=== PATIENT | male | born 1975 | race American Indian/Alaskan Native ===

== ENCOUNTER 2019-10-19 18:25 | Emergency (ER) | payer SELFPAY ==
--- NOTE | 2019-10-19 18:47 | Emergency Department Report ---
Blank Doc - Documentation Documentation: 44-year-old male that presents with left knee pain, swelling, and warm to touch. HX of gout. Tachycardia in traiage. This initial assessment/diagnostic orders/clinical plan/treatment(s) is/are subject to change based on patient's health status, clinical progression and re-assessment by fellow clinical providers in the ED. Further treatment and workup at subsequent clinical providers discretion. Patient/guardians urged not to elope from the ED as their condition may be serious if not clinically assessed and managed. Initial orders include: 1- Patient sent to [facility] for further evaluation and treatment 2- exam to r/o septic joint 3- xrays
--- NOTE | 2019-10-19 19:49 | XRay Report ---
LEFT KNEE 3 VIEW(S) INDICATION / CLINICAL INFORMATION: knee pain and swelling COMPARISON: None available. FINDINGS: No acute fracture or subluxation. Medial femoral and tibial osteophytes are present, suggestive of un derlying osteoarthrosis. There is a large suprapatellar joint fluid collection. Ossific density fragm ents at the tibial tubercle probably reflect chronic [place]-Schlatter disease. Signer Name: Nehemias Weeks MD Signed: 10/19/2019 7:44 PM Workstation Name: [id number]
[2019-10-19] MEDS ORDERED: dexAMETHasone 20 MG/5 ML VIAL IM ONE (21:32)
[2019-10-19] MEDS ORDERED: KETOROLAC 60 MG/2 ML INJ IM ONE (21:32)
--- NOTE | 2019-10-19 21:39 | Emergency Department Report ---
ED Extremity Problem HPI - General Chief complaint: Extremity Problem,Nontraumatic Stated complaint: LFT KNEE SWELLING/PAIN Time Seen by Provider: 10/19/19 18:46 Source: patient Mode of arrival: Ambulatory Limitations: No Limitations - History of Present Illness Initial comments: Patient is a 44-year-old male presents the emergency room with complaints of a "gout flare" that began 2 to 3 days ago. He states that his flare is in his left knee. Patient states that he chronically has gout and gets it in different joints. He states he has had an arthrocentesis before and was diagnosed with gout at that time. He denies any fall or injury. He denies any numbness or weakness. He denies any fever, nausea, vomiting, diarrhea, any other symptoms. He does not have a primary care physician. He denies any allergies to medications. - Related Data Previous Rx's Medication Instructions Recorded Last Taken Type Acetaminophen/Codeine [Tylenol 1 tab PO Q6H PRN #12 tab 07/05/18 Unknown Rx /Codeine # 3 tab] Colchicine 0.6 mg PO DAILY #10 tablet 07/05/18 Unknown Rx Sulfamethoxazole/Trimethoprim 1 each PO BID #14 tablet 07/05/18 Unknown Rx [Bactrim DS TAB] allopurinoL [Allopurinol] 300 mg PO DAILY #10 tablet 07/05/18 Unknown Rx amLODIPine [Norvasc] 5 mg PO DAILY #30 tab 07/05/18 Unknown Rx Sulfamethoxazole/Trimethoprim 1 each PO BID #14 tablet 07/12/18 Unknown Rx [Bactrim DS TAB] Ibuprofen [Motrin 800 MG tab] 800 mg PO Q8HR PRN #14 tablet 01/21/19 Unknown Rx Acetaminophen/Codeine [Tylenol 1 tab PO Q6H PRN #10 tab 10/19/19 Unknown Rx /Codeine # 3 tab] Colchicine 0.6 mg PO BID 1 Days #3 capsule 10/19/19 Unknown Rx Indomethacin 50 mg PO Q8H 7 Days #21 capsule 10/19/19 Unknown Rx Prednisone [predniSONE 10 mg 10 mg PO .TAPER #1 tab.ds.pk 10/19/19 Unknown Rx (6-Day Pack, 21 Tabs)] Allergies Allergy/AdvReac Type Severity Reaction Status Date / Time No Known Allergies Allergy Verified 07/05/18 20:47 ED Review of Systems ROS: Stated complaint: LFT KNEE SWELLING/PAIN Other details as noted in HPI Comment: All other systems reviewed and negative ED Past Medical Hx - Past Medical History Previous Medical History?: Yes Additional medical history: gout, bursitis - Surgical History Past Surgical History?: Yes Additional Surgical History: Right hand/elbow - Social History Smoking Status: Unknown if ever smoked Substance Use Type: None - Medications Home Medications: Home Medications Medication Instructions Recorded Confirmed Last Taken Type Acetaminophen/Codeine [Tylenol 1 tab PO Q6H PRN #12 tab 07/05/18 Unknown Rx /Codeine # 3 tab] Colchicine 0.6 mg PO DAILY #10 tablet 07/05/18 Unknown Rx Sulfamethoxazole/Trimethoprim 1 each PO BID #14 tablet 07/05/18 Unknown Rx [Bactrim DS TAB] allopurinoL [Allopurinol] 300 mg PO DAILY #10 tablet 07/05/18 Unknown Rx amLODIPine [Norvasc] 5 mg PO DAILY #30 tab 07/05/18 Unknown Rx Sulfamethoxazole/Trimethoprim 1 each PO BID #14 tablet 07/12/18 Unknown Rx [Bactrim DS TAB] Ibuprofen [Motrin 800 MG tab] 800 mg PO Q8HR PRN #14 tablet 01/21/19 Unknown Rx Acetaminophen/Codeine [Tylenol 1 tab PO Q6H PRN #10 tab 10/19/19 Unknown Rx /Codeine # 3 tab] Colchicine 0.6 mg PO BID 1 Days #3 capsule 10/19/19 Unknown Rx Indomethacin 50 mg PO Q8H 7 Days #21 capsule 10/19/19 Unknown Rx Prednisone [predniSONE 10 mg 10 mg PO .TAPER #1 tab.ds.pk 10/19/19 Unknown Rx (6-Day Pack, 21 Tabs)] ED Physical Exam - General Limitations: No Limitations General appearance: alert, other (appears to be in mild amount of pain) - Head Head exam: Present: atraumatic, normocephalic - Eye Eye exam: Present: normal appearance - ENT ENT exam: Present: mucous membranes moist - Extremities Exam Extremities exam: Present: other (TTP to the left anterior knee, edema present to the left knee, mildly increased warmth, no erythema, slightly decreased ROM secondary to pain and edema, no skin changes, neurovascularly intact) - Neurological Exam Neurological exam: Present: alert, oriented X3 - Psychiatric Psychiatric exam: Present: normal affect, normal mood - Skin Skin exam: Present: warm, dry, intact ED Course Vital Signs 10/19/19 10/19/19 18:50 22:00 Temperature 98.3 F Pulse Rate 127 H 89 Respiratory 16 17 Rate Blood Pressure 165/107 Blood Pressure 168/99 [Right] O2 Sat by Pulse 98 100 Oximetry ED Medical Decision Making - Radiology Data Radiology results: report reviewed LEFT KNEE 3 VIEW(S) INDICATION / CLINICAL INFORMATION: knee pain and swelling COMPARISON: None available. FINDINGS: No acute fracture or subluxation. Medial femoral and tibial osteophytes are present, suggestive of underlying osteoarthrosis. There is a large suprapatellar joint fluid collection. Ossific density fragments at the tibial tubercle probably reflect chronic [place]-Schlatter disease. Signer Name: Nehemias Weeks MD Signed: 10/19/2019 7:44 PM Workstation Name: [id number] Transcribed By: LANE Dictated By: Nehemias Weeks MD Electronically Authenticated By: Nehemias Weeks MD Signed Date/Time: 10/19/191943 DD/ 42 TD/TT: - Medical Decision Making Patient is a 44-year-old male presents the emergency room with complaints of a "gout flare" that began 2 to 3 days ago. He states that his flare is in his left knee. Patient states that he chronically has gout and gets it in different joints. He states he has had an arthrocentesis before and was diagnosed with gout at that time. He denies any fall or injury. He denies any numbness or weakness. He denies any fever, nausea, vomiting, diarrhea, any other symptoms. He does not have a primary care physician. He denies any allergies to medications. on exam: TTP to the left anterior knee, edema present to the left knee, mildly increased warmth, no erythema, slightly decreased ROM secondary to pain and edema, no skin changes, neurovascularly intact. XR of left knee: No acute fracture or subluxation. Medial femoral and tibial osteophytes are prese nt, suggestive of underlying osteoarthrosis. There is a large suprapatellar joint fluid collection. Ossific density fragments at the tibial tubercle probably reflect chronic Marlene-Schlatter disease. examination consistent with gout. does not appear consistent with septic joint, there is no erythema, no skin changes, pt still has some ROM just slightly restricted from pain and edema. pt given toradol and dexamethasone while in the ED as he drove to the emergency department. given prescriptions for Tylenol with codeine, colchicine, indomethacin, steroids. Advised patient to please take medication as prescribed. Do not drive or operate heavy machinery while taking pain medication. Follow-up with a primary care doctor. Follow-up with orthopedic doctor. Return to the emergency room for any new or worsening symptoms. - Differential Diagnosis strain, sprain, osteoarthritis, gout, septic joint, RA Critical care attestation.: If time is entered above; I have spent that time in minutes in the direct care of this critically ill patient, excluding procedure time. ED Disposition Clinical Impression: Arthritis, Suprapatellar effusion of knee Gout Qualifiers: Gout site: knee Gout etiology: unspecified cause Chronicity: acute Laterality: left Qualified Code(s): M10.9 - Gout, unspecified Disposition: - TO HOME OR SELFCARE Is pt being admited?: No Does the pt Need Aspirin: No Condition: Stable Instructions: Acute Gouty Arthritis (ED) Additional Instructions: please take medication as prescribed. Do not drive or operate heavy machinery while taking pain medication. Follow-up with a primary care doctor. Follow-up with orthopedic doctor. Return to the emergency room for any new or worsening symptoms. Prescriptions: Colchicine 0.6 mg PO BID 1 Days #3 capsule Indomethacin 50 mg PO Q8H 7 Days #21 capsule Prednisone [predniSONE 10 mg (6-Day Pack, 21 Tabs)] 10 mg PO .TAPER #1 tab.ds.pk Acetaminophen/Codeine [Tylenol /Codeine # 3 tab] 1 tab PO Q6H PRN #10 tab PRN Reason: Pain , Severe (7-10) Referrals: WICHO NEVAREZ MD [Staff Physician] - 2-3 Days [facility] [Outside] - 2-3 Days [facility] [Outside] - 2-3 Days IRVING HACKETT MD [Staff Physician] - 2-3 Days [facility] [Provider Group] - 2-3 Days Forms: Accompanied Note, Work/School Release Form(ED) Time of Disposition: 21:42 Print Language: YEMENI
[2019-10-19 22:02] VITALS: BP 168/99
== END 2019-10-19 22:00 | disposition home or self-care (01) ==
LOC: ED 18:25
DX: M10.9 Gout, unspecified (principal); M17.12 Unilateral primary osteoarthritis, left knee; Z79.1 Long term (current) use of non-steroidal anti-inflammatories (NSAID); Z79.899 Other long term (current) drug therapy; Z98.890 Other specified postprocedural states
CPT/HCPCS: 73562; 96372; 99283; J1100; J1885